=== PATIENT | male | born 1990 | race American Indian/Alaskan Native ===

== ENCOUNTER 2019-10-27 00:34 | Emergency (ER) | payer SELFPAY ==
[2019-10-27 00:41] VITALS: BP 114/92
[2019-10-27] MEDS ORDERED: HYDROcodone/ACETAMINOPHEN 5-325 MG TAB PO ONE (00:56)
--- NOTE | 2019-10-27 02:59 | XRay Report ---
EXAMINATION: Right ankle radiograph, 4 views CLINICAL INFORMATION: Right ankle pain and swelling. No history of trauma is given. COMPARISON: None. FINDINGS: There is generalized soft tissue swelling of the right ankle without evidence of acute frac ture or dislocation. Signer Name: Christine Alvarez MD Signed: 10/27/2019 2:54 AM Workstation Name: [id number]
--- NOTE | 2019-10-27 02:59 | XRay Report ---
EXAMINATION: Right foot radiograph, 3 views CLINICAL INFORMATION: Right foot pain and swelling. No history of trauma is given COMPARISON: None. FINDINGS: There is no evidence of acute fracture of the right foot. There is mild generalized soft ti ssue swelling of the ankle. Signer Name: Christine Alvarez MD Signed: 10/27/2019 2:55 AM Workstation Name: [id number]
--- NOTE | 2019-10-27 03:12 | Emergency Department Report ---
ED Lower Extremity HPI - General Chief Complaint: Extremity Injury, Lower Stated Complaint: RIGHT ANKLE PAIN Time Seen by Provider: 10/27/19 00:58 Source: patient, EMS Mode of arrival: Wheelchair Limitations: No Limitations - History of Present Illness Initial Comments: pt is a 29 y/o w/m who presents for right ankle pain x 1 week, states he twisted it while walking. pt remains ambulatory with steady gait. states pain is 4/10 aching, pain is relieved by rest and elevation. pain is exacerbated by weight bearing. MD Complaint: ankle injury Onset/Timin -: week(s) Injury: Ankle: Right Type of Injury: eversion Place: street/outdoors Severity: moderate Severity scale (0 -10): 4 Improves With: rest Worsens With: weight bearing, movement, palpation Context: walking Associated Symptoms: swelling, ambulatory. denies: snap/pop sensation, numbness, tingling - Related Data Previous Rx's Medication Instructions Recorded Last Taken Type Naproxen 500 mg PO BID PRN #30 tablet 10/27/19 Unknown Rx Allergies Allergy/AdvReac Type Severity Reaction Status Date / Time No Known Allergies Allergy Unverified 10/27/19 00:35 ED Review of Systems ROS: Stated complaint: RIGHT ANKLE PAIN Other details as noted in HPI Constitutional: denies: chills, fever Eyes: denies: eye pain, eye discharge, vision change ENT: denies: ear pain, throat pain Respiratory: denies: cough, shortness of breath, wheezing Cardiovascular: denies: chest pain, palpitations Endocrine: no symptoms reported Gastrointestinal: denies: abdominal pain, nausea, vomiting, diarrhea Genitourinary: denies: urgency, dysuria Musculoskeletal: joint swelling (right ankle ). denies: back pain, arthralgia, myalgia Skin: denies: rash, lesions Neurological: denies: headache, weakness, paresthesias Psychiatric: denies: anxiety, depression Hematological/Lymphatic: denies: easy bleeding, easy bruising ED Past Medical Hx - Past Medical History Additional medical history: hx of drug abuse - Surgical History Additional Surgical History: hydrocele 2017 - Social History Smoking Status: Current Every Day Smoker Substance Use Type: Alcohol, Cocaine - Medications Home Medications: Home Medications Medication Instructions Recorded Confirmed Last Taken Type Naproxen 500 mg PO BID PRN #30 tablet 10/27/19 Unknown Rx ED Physical Exam - General Limitations: No Limitations General appearance: alert, in no apparent distress - Head Head exam: Present: atraumatic, normocephalic - Eye Eye exam: Present: normal appearance - ENT ENT exam: Present: mucous membranes moist - Neck Neck exam: Present: normal inspection, tenderness, full ROM - Respiratory Respiratory exam: Present: normal lung sounds bilaterally. Absent: respiratory distress, wheezes, chest wall tenderness - Cardiovascular Cardiovascular Exam: Present: regular rate, normal rhythm, normal heart sounds. Absent: systolic murmur, diastolic murmur, rubs, gallop - GI/Abdominal GI/Abdominal exam: Present: soft, normal bowel sounds. Absent: distended, tenderness - Rectal Rectal exam: Present: deferred - Extremities Exam Extremities exam: Present: normal inspection, full ROM, normal capillary refill. Absent: tenderness - Back Exam Back exam: Present: normal inspection, full ROM. Absent: vertebral tenderness - Neurological Exam Neurological exam: Present: alert, oriented X3, CN II-XII intact, normal gait, reflexes normal. Absent: motor sensory deficit - Psychiatric Psychiatric exam: Present: normal affect, normal mood - Skin Skin exam: Present: warm, dry, intact, normal color. Absent: rash ED Course Vital Signs 10/27/19 00:35 Temperature 98.5 F Pulse Rate 112 H Respiratory 18 Rate Blood Pressure 114/92 O2 Sat by Pulse 97 Oximetry ED Lower Extremity MDM - Radiology Data Radiology results: image reviewed no fracture mild soft tissue swelling - Medical Decision Making no fracture , pt states pain improved plan: dc to home with rx for naproxen pain , rice therapy follow up with pcp in 2-3 days, pt verbalized agreement and understanding of discharge plan. Critical care attestation.: If time is entered above; I have spent that time in minutes in the direct care of this critically ill patient, excluding procedure time. ED Disposition Clinical Impression: Right ankle strain Qualifiers: Encounter type: initial encounter Qualified Code(s): S96.911A - Strain of unspecified muscle and tendon at ankle and foot level, right foot, initial encounter Disposition: DC-01 TO HOME OR SELFCARE Is pt being admited?: No Condition: Stable Instructions: Ankle Exercises (GEN) Prescriptions: Naproxen 500 mg PO BID PRN #30 tablet PRN Reason: pain Referrals: STEFANIE VAILES MD [Staff Physician] - 3-5 Days Forms: Work/School Release Form(ED) Time of Disposition: 03:26
== END 2019-10-27 04:25 | disposition home or self-care (01) ==
LOC: ED 00:34
DX: S96.811A Strain of other specified muscles and tendons at ankle and foot level, right foot, initial encounter (principal); F17.200 Nicotine dependence, unspecified, uncomplicated; F14.90 Cocaine use, unspecified, uncomplicated; Z72.89 Other problems related to lifestyle; Z79.899 Other long term (current) drug therapy; X50.1XXA Overexertion from prolonged static or awkward postures, initial encounter; Y93.89 Activity, other specified; Y92.89 Other specified places as the place of occurrence of the external cause; Y99.8 Other external cause status
CPT/HCPCS: 99283